=== PATIENT | male | born 1995 | race Caucasian/White ===

== ENCOUNTER 2016-08-22 16:09 | Emergency (ER) | payer SELFPAY ==
[~2016-08-22 16:09] MED LIST: IBUP-1542 PO; NEOM1PAC TP
== END 2016-08-22 16:26 | disposition left against medical advice (07) ==
LOC: E/R 16:09
DX: Z53.21 Procedure and treatment not carried out due to patient leaving prior to being seen by health care provider (principal)

== ENCOUNTER 2019-01-16 16:24 | Emergency (ER) | payer SELFPAY ==
[~2019-01-16] VITALS: Ht 162.6 cm; Wt 70.1 kg
[~2019-01-16 16:24] MED LIST changes: +CLIN300C10 PO; +HYDR-4011 PO; +ONDA4TAB14 PO
[2019-01-16 16:38] VITALS: BP 123/78; PULSE 100; RESP 16; Ht 162.6 cm; Wt 70.1 kg
--- NOTE | 2019-01-16 17:25 | ERD ---
ER Documentation Chief Complaint Chief Complaint dizziness/vomiting x1 day w/ now reduced hernia HPI 23-year-old male with no reported past medical or surgical history who presents with complaint of vomiting and concern for abdominal mass/hernia. 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 At that time he noticed a protruding mass to right upper abdomen that spontaneously resolved on its own. He currently denies any abdominal pain, persistent nausea or vomiting, lightheadedness, dizziness, dysuria, flank pain or any other concerning symptoms. Patient states he does not have insurance and has not been evaluated for this issue and only recently noticed this problem. ROS All systems reviewed and are negative except as per history of present illness. Medications Home Meds Active Scripts Ibuprofen* (Motrin*) 600 Mg Tab, 600 MG PO Q6, #30 TAB Prov:HERB WELLS PA-C 01/16/19 Ondansetron (Ondansetron Odt) 4 Mg Tab.rapdis, 4 MG PO Q6H PRN for NAUSEA AND/OR VOMITING, #10 TAB Prov:HERB WELLS PA-C 01/16/19 Hydrocodone/Acetaminophen (Largo 5-325 Tablet) 1 Each Tablet, 1 TAB PO Q6H PRN for PAIN, #7 TAB Prov:PAVEL HAYDEN PA-C 12/24/18 Clindamycin Hcl* (Clindamycin Hcl*) 300 Mg Capsule, 300 MG PO TID for 10 Days, CAP Prov:PAVEL HAYDEN PA-C 12/24/18 Neomycin Bueno/Bacitrac Zn/Poly (Triple Antibiotic Ointment) 1 Each Oint.pack, 1 EACH TP BID for 7 Days Prov:NANO HAYES PA-C 06/03/16 Ibuprofen* (Motrin*) 600 Mg Tab, 600 MG PO Q6H PRN for PAIN AND OR ELEVATED TEMP, #30 TAB Prov:JENNIFER SKELTON MD 05/18/16 Allergies Allergies: Coded Allergies: amoxicillin (Verified Allergy, Unknown, 01/16/19) PMhx/Soc Medical and Surgical Hx: pt denies Medical Hx, pt denies Surgical Hx History of Surgery: No Anesthesia Reaction: No Hx Neurological Disorder: No Hx Respiratory Disorders: No Hx Cardiac Disorders: No Hx Psychiatric Problems: Yes (bipolar/major depression/anxiety) Hx Miscellaneous Medical Probl: No Hx Alcohol Use: Yes (yesterday) Hx Substance Use: Yes (1 gm of Marijuana ) Hx Tobacco Use: Yes (1-2cig/day) Smoking Status: Current every day smoker FmHx Family History: No diabetes, No coronary disease, No other Physical Exam Vitals Vital Signs Date Temp Pulse Resp B/P (MAP) Pulse Ox O2 O2 Flow FiO2 Time Delivery Rate 01/16/19 97.6 100 16 123/78 98 16:38 (93) Physical Exam I have reviewed the triage vital signs. Const: Well nourished, well developed, appears stated age Eyes: PERRL, no conjunctival injection HENT: NCAT, Neck supple without meningismus CV: RRR, Warm, well-perfused extremities RESP: CTAB, Unlabored respiratory effort GI: soft, non-tender, non-distended, no masses, with cough unable to markedly appreciate any bulging masses to abdominal wall, no masses inguinal wall MSK: No gross deformities appreciated Skin: Warm, dry. No rashes Neuro: grossly non focal Psych: Appropriate mood and affect. Procedures/MDM 23-year-old male presents with what appears per history like an abdominal wall hernia. I have low suspicion for acute abdomen, incarcerated bowel, irreducible hernia or any other acute emergency warranting further emergent work-up or care other than stated below. Patient has a reassuring exam without any peritoneal signs, nontender exam. Patient advised to establish care with a primary care provider in case he likely needs referral for hernia repair or evaluation by a specialist. Patient agrees with plan and all questions answered. Course: Abdominal ultrasound without acute finding Patient advised to follow-up with PMD, obtain referral to specialist DISPOSITION PLAN: We discussed follow up with the patient's primary care doctor within 24 to 48 hours. Patient counseled regarding my diagnostic impression and care plan. Prior to discharge all questions answered. Pt agrees with treatment plan and understands strict return precautions. Precautionary instructions provided including instructions to return to the ER if not improving or for any worsening or changing symptoms or concerns. Disclaimer: Inadvertent spelling and grammatical errors are likely due to EHR/dictation software use and do not reflect on the overall quality of patient care. Also, please note that the electronic time recorded on this note does not necessarily reflect the actual time of the patient encounter. Departure Diagnosis: Primary Impression: Multiple complaints Condition: Stable Patient Instructions: Laparoscopic Hernia Repair, How a Hernia Develops Referrals: [facility] YOU HAVE RECEIVED A MEDICAL SCREENING EXAM AND THE RESULTS INDICATE THAT YOU DO NOT HAVE A CONDITION THAT REQUIRES URGENT TREATMENT IN THE EMERGENCY DEPARTMENT. FURTHER EVALUATION AND TREATMENT OF YOUR CONDITION CAN WAIT UNTIL YOU ARE SEEN IN YOUR DOCTORS OFFICE WITHIN THE NEXT 1-2 DAYS. IT IS YOUR RESPONSIBILITY TO MAKE AN APPOINTMENT FOR FOLOW-UP CARE. IF YOU HAVE A PRIMARY DOCTOR --you should call your primary doctor and schedule an appointment IF YOU DO NOT HAVE A PRIMARY DOCTOR YOU CAN CALL OUR PHYSICIAN REFERRAL HOTLINE AT IF YOU CAN NOT AFFORD TO SEE A PHYSICIAN YOU CAN CHOSE FROM THE FOLLOWING [facility] [address] [facility]. [facility] [address] [facility] [facility] [address] [facility]. [facility] [address] [facility]. [facility] [address] [facility]. [facility]. [address] Additional Instructions: Call your primary care doctor TOMORROW for an appointment during the next 2-3 days.See the doctor sooner or return here if your condition worsens before your appointment time. HERB WELLS PA-C Jan 16, 2019 17:25
== END 2019-01-16 18:53 | disposition home or self-care (01) ==
LOC: FTE 16:24
DX: R42 Dizziness and giddiness (principal); F17.210 Nicotine dependence, cigarettes, uncomplicated; R11.2 Nausea with vomiting, unspecified
CPT/HCPCS: 76700